=== PATIENT | female | born 1940 | race Caucasian/White ===

== ENCOUNTER 2017-02-21 05:13 | Inpatient (IN) | payer MEDICARE, BC ==
[~2017-02-21 05:13] MED LIST: ACID REDUCER75 MG PO; ACIDOPHILUS1 CAP PO; ACIDOPHILUS1 EAC1 PO; ACIPHEX20 MG; ADULT LOW DOSE81 M1 PO; ALTACE2.5 M3 PO; ALTACE5 M4 PO; AMOXICILLIN500 M1 PO; AMOXICILLIN500 MG PO; ASPERDRINK81 MG PO; ASPIRIN81 MG PO; AUGMENTIN 875-1 EAC2 PO; BENTYL20 MG PO; BIAXIN500 MG PO; CALCIUM 1,0001 EAC1 PO; CALCIUM 500 +1 EAC4 PO; CALCIUM 600 +1 EA21 PO; CALCIUM CARBON600 M2 PO; CALCIUM W/VIT1 EACH PO; CENTRUM SILVER1 EAC6 PO; CENTRUM SILVER1 TA PO; CIPRO250 M2 PO; CRANBERRY500 M3 PO; CYMBALTA30 M1 PO; EC ASPIRIN325 MG PO; ELIQUIS5 M1 PO; ESTROPIPATE PO; ESTROPIPATE0.75 MG; EXFORGE 5-160 M1 TAB PO; EXFORGE 5-1601 EACH PO; FEXOFENADINE H180 MG PO; GAS RELIEF125 MG; GEMFIBROZIL600 MG PO; GLUCOSAMINE CH1 EACH PO; GLUCOSAMINE/CHO1 TAB PO; HALCION0.25 M2 PO; HEARTBURN RELIE75 M1 PO; IMODIUM2 MG; K-TAB ER10 MEQ PO; LANTUS100 UNITS/ SC; LEVOXYL50 MC1 PO; LEVOXYL50 MCG; LEVOXYL50 MCG PO; LEXAPRO10 MG; LIPITOR20 M1 PO; LOSARTAN-HCTZ1 EAC6 PO; LOTREL 5/20 MG1 CAP; LOVENOX40 MG/0.4 SQ; MELATONIN3 M4 PO; METFORMIN HCL500 M2 PO; METFORMIN HCL500 MG PO; MUCINEX PO; MUCINEX600 M1 PO; MUCINEX600 MG PO; MUCUS RELIEF400 M1 PO; MUCUS RELIEF400 MG; NIACIN50 PO; NIACIN500 M1 PO; NIACIN500 MG PO; NITROSTAT0.4 MG; NORCO 5/325 TAB1 TAB PO; NORVASC5 M2 PO; NOVOLOG FL100 UNIT/2 SC; OGEN PO; OGEN0.75 MG PO; OXAZEPAM PO; OXAZEPAM15 MG PO; OYSTER SHELL C500 MG; POTASSIUM CHLO10 MEQ PO; PREDNISONE5 M1 PO; PREDNISONE5 MG PO; PREVACID30 MG PO; RELI PO; REQUIP1 M1 PO; ROBITUSSIN COU118 M1; SERTRALINE HCL50 M4 PO; SORINE80 M2 PO; TOPROL XL50 M1 PO; TOPROL XL50 MG PO; TRIAZOLAM PO; TRIAZOLAM0.25 M1 PO; TYLENOL325 M2 PO; TYLENOL325 MG PO; TYLENOL500 MG PO; ULTRAM50 MG PO; VITAMIN C; VITAMIN C PO; VITAMIN D1000 UNI1 PO; VITAMIN D2000 UNI1 PO; VITAMIN D32000 UNI2 PO; ZANTAC150 MG PO; ZETIA10 M1 PO; ZETIA10 MG; ZOFRAN4 MG PO; ZOLOFT25 M1 PO; ZOLOFT50 MG PO; ZYLOPRIM100 M1 PO; [UNRECOGNIZED DRUG - OTHER]; [UNRECOGNIZED DRUG - OTHER] PO; [UNRECOGNIZED DRUG - OTHER] PO; [UNRECOGNIZED DRUG - OTHER] PO
[2017-02-21 06:04] LABS: INR 0.9 INR (0.9-1.1); PROTHROMBIN TIME 10.7 SECONDS (9.0-13.6)
[2017-02-22 05:39] LABS: BASO % 0.5 % (0-2); BASO ABSOLUTE COUNT 0.1 tho/cmm (0.0-0.2); EOS % 1.1 % (0-7); EOSINOPHIL ABSOLUTE COUNT 0.1 tho/cmm (0.0-0.7); HCT-HEMATOCRIT 28.4 % (34.0-49.0); HGB-HEMOGLOBIN 9.5 gm/dl (12.0-15.5); IMMATURE GRANULOCYTES ABSOLUTE 0.03 tho/cmm (0-0.03); IMMATURE GRANULOCYTES PERCENT 0.3 % (0-0.3); LYMPH % 20.1 % (20-45); LYMPH ABSOLUTE COUNT 2.1 tho/cmm (0.8-4.5); MCH (MEAN CORPUSCULAR HGB) 29.1 pg (28.0-32.0); MCHC MEAN CORPUSCULAR HGB CONC 33.5 % (32.0-36.0); MCV (MEAN CELL VOLUME) 87.1 fl (82.0-96.0); MEAN PLATELET VOLUME 10.1 cmc (9.4-12.4); MONO % 12.2 % (0-12); MONOCYTE ABSOLUTE COUNT 1.3 tho/cmm (0.0-1.2); NEUTROPHIL ABSOLUTE COUNT 6.8 tho/cmm (1.6-8.0); NEUTROPHIL-AUTOMATED 6.8 tho/cmm (1.6-8.0); NEUTROPHILS % 65.8 % (40-80); PLATELET COUNT 154 tho/cmm (150-450); RED BLOOD COUNT 3.26 mil/cmm (4.00-5.20); RED CELL DISTRIBUTION WIDTH 14.7 % (12.4-16.4); WHITE BLOOD COUNT 10.4 tho/cmm (4.0-10.0)
[2017-02-24] MEDS ORDERED: ASPIRIN325 M3 PO (11:05)
[2017-02-24] MEDS ORDERED: MOBIC7.5 M2 PO (11:06)
[2017-02-24] MEDS ORDERED: ROXICODONE5 M2 PO (11:06)
[2017-02-24] MEDS ORDERED: ULTRAM50 M1 PO (11:07)
== END 2017-02-24 12:15 | DRG 470 ==
LOC: SHSC 05:13 → ORE 06:53 → PACU 09:17 → 5EA 10:15
PROVIDERS: Physician Assistant; ADMIT Orthopaedic Surgery Sports Medicine
PROC: 0SRD0J9 Replacement of Left Knee Joint with Synthetic Substitute, Cemented, Open Approach (ICD-10-PCS; principal; 2017-02-21)
DX: M17.12 Unilateral primary osteoarthritis, left knee (principal); E11.22 Type 2 diabetes mellitus with diabetic chronic kidney disease; I48.0 Paroxysmal atrial fibrillation; N18.3 Chronic kidney disease, stage 3 (moderate); F32.9 Major depressive disorder, single episode, unspecified; G31.84 Mild cognitive impairment of uncertain or unknown etiology; E55.9 Vitamin D deficiency, unspecified; Z79.4 Long term (current) use of insulin; M10.9 Gout, unspecified; J30.9 Allergic rhinitis, unspecified; I25.10 Atherosclerotic heart disease of native coronary artery without angina pectoris; H91.90 Unspecified hearing loss, unspecified ear; E78.5 Hyperlipidemia, unspecified; E03.9 Hypothyroidism, unspecified; G47.00 Insomnia, unspecified; K58.9 Irritable bowel syndrome, unspecified; I73.9 Peripheral vascular disease, unspecified; M35.3 Polymyalgia rheumatica; G25.81 Restless legs syndrome; M54.30 Sciatica, unspecified side; Z86.73 Personal history of transient ischemic attack (TIA), and cerebral infarction without residual deficits
CPT/HCPCS: C1713; C1776; J0171; J0690; J1815; J1885; J2270; J2405; J2795